=== PATIENT | female | born 1965 | race African-American/Black ===

== ENCOUNTER 2023-03-07 19:51 | Emergency (ER) | payer OTHER, MEDICAID ==
[~2023-03-07] VITALS: Ht 165.1 cm; Wt 81.6 kg
[2023-03-07 19:56] VITALS: BP 114/80; PULSE 68; RESP 16; TEMP 97.4; O2SAT 94
[2023-03-07] MEDS ORDERED: DEXTROSE 50% 50 ML SYR IVP ONE ×2 (20:03→20:10)
[2023-03-07] MEDS ORDERED: NACL 0.9% 1,000 ML IV SCH (20:25)
[2023-03-07] MEDS ORDERED: cefTRIAXone 1,000 MG in DEXT 5% MINI-BAG PLUS 50 ML IV ONE (20:25)
[2023-03-07 20:33] LABS: BASOPHILS # (AUTO) 0.1 K/uL (0.00-0.22); BASOPHILS % (AUTO) 0.8 % (0.0-2.0); EOSINOPHILS # (AUTO) 0.2 K/uL (0-0.4); EOSINOPHILS % (AUTO) 2.4 % (0.0-4.0); HEMATOCRIT 33.7 % (36-48); HEMOGLOBIN 11.1 g/dL (12.0-16.0); LYMPHOCYTES # (AUTO) 3.1 K/uL (2.5-16.5); LYMPHOCYTES % (AUTO) 37.6 % (20.5-51.1); MEAN CORPUSCULAR HEMOGLOBIN 30 pg (27-31); MEAN CORPUSCULAR HGB CONC 33 g/dL (33-37); MEAN CORPUSCULAR VOLUME 91.1 fL (80-94); MONOCYTES # (AUTO) 0.5 K/uL (0.8-1.0); MONOCYTES % (AUTO) 6.5 % (1.7-9.3); NEUTROPHILS # (AUTO) 4.3 K/uL (1.8-7.7); NEUTROPHILS % (AUTO) 52.7 % (42.2-75.2); PLATELET COUNT (AUTO) 390 K/uL (140-450); RED CELL DISTRIBUTION WIDTH 14.3 % (11.6-13.7); WHITE BLOOD COUNT (AUTO) 8.2 K/uL (4.8-10.8)
[2023-03-07 20:49] LABS: ALANINE AMINOTRANSFERASE 13 U/L (12-78); ALBUMIN 3.3 g/dL (3.4-5.0); ALKALINE PHOSPHATASE 85 U/L (50-136); ANION GAP 14.2 (8-16); ASPARTATE AMINOTRANSFERASE 12 U/L (15-37); CALCIUM 9.3 mg/dL (8.5-10.1); CARBON DIOXIDE 23.4 mmol/L (21-32); CHLORIDE 107 mmol/L (98-107); CREATININE 1.2 mg/dL (0.6-1.3); GFR ARICAN-AMERICAN 59 mL/min (>90); GFR NON ARICAN-AMERICAN 49 mL/min (>90); GLUCOSE 111 mg/dL (74-106); POTASSIUM 4.6 mmol/L (3.5-5.1); SODIUM SERUM 140 mmol/L (136-145); TOTAL BILIRUBIN 0.2 mg/dL (0.0-1.0); TOTAL PROTEIN, SERUM 7.6 g/dL (6.4-8.2); UREA NITROGEN, BLOOD 28 mg/dL (7-18)
[2023-03-07] MEDS ORDERED: cefTRIAXone 1,000 MG VIAL ONE (21:02)
[2023-03-07 21:09] LABS: LACTIC ACID 1.1 mmol/L (0.4-2.0)
[2023-03-07 21:34] LABS: APPEARANCE,URINE CLEAR (CLEAR); BILIRUBIN,URINE NEGATIVE (NEGATIVE); BLOOD, URINE NEGATIVE (NEGATIVE); COLOR,URINE YELLOW (YELLOW); LEUKOCYTE ESTERASE ,URINE TRACE (NEGATIVE); NITRITE, URINE POSITIVE (NEGATIVE); PH,URINE 5.5 (5.0-9.0); PROTEIN,URINE NEGATIVE (NEGATIVE); UGLUCOSE TRACE (NEGATIVE); UROBILINOGEN,URINE 0.2 EU/dL (0.2 - 1)
[2023-03-07 21:44] LABS: BACTERIA,URINE 10-30 (MOD) /HPF (None Seen); RBC,URINE 0-5 /HPF (0-5); SQUAMOUS EPITHELIAL CELL,UR 0-3 (FEW) /LPF (0-3 (FEW)); WBC,URINE 0-5 /HPF (0-5)
[2023-03-07 21:50] LABS: FLU A ANTIGEN negative (NEGATIVE); FLU B ANTIGEN NEGATIVE (NEGATIVE)
[2023-03-08] MEDS ORDERED: DEXTROSE 10% 250 ML IV SCH ×3 (00:10→00:20)
[2023-03-08] MEDS ORDERED: DEXTROSE 10% 250 ML IV ONE (00:20)
[2023-03-08 02:01] VITALS: O2SAT 100
[2023-03-08 07:45] VITALS: O2SAT 98
[2023-03-08 09:05] VITALS: O2SAT 98
[2023-03-08 13:03] VITALS: BP 113/79; PULSE 89; RESP 18; TEMP 98.1; O2SAT 99
== END 2023-03-08 13:07 | disposition short-term general hospital (02) ==
LOC: MED 19:51
DX: R41.82 Altered mental status, unspecified (principal); Z20.822 Contact with and (suspected) exposure to COVID-19; N39.0 Urinary tract infection, site not specified; E11.65 Type 2 diabetes mellitus with hyperglycemia; Z79.4 Long term (current) use of insulin; Z79.899 Other long term (current) drug therapy
CPT/HCPCS: 36415; 70450; 70496; 70498; 71045; 80053; 81001; 83605; 83880; 84484; 85025; 87040; 87086; 87426; 87804; 96365; 96375; 99285; J0696; J7030; Q0092; Q9967